=== PATIENT | male | born 1990 | race Caucasian/White ===

== ENCOUNTER 2018-08-08 15:27 | Emergency (ER) | payer MEDICAID ==
[~2018-08-08] VITALS: Ht 157.5 cm; Wt 71.1 kg
[2018-08-08 15:30] VITALS: BP 132/67; PULSE 83; RESP 18; Ht 157.5 cm; Wt 71.1 kg
[2018-08-08] MEDS ORDERED: IBUPROFEN 600 MG TAB PO ONE (16:30)
[2018-08-08] MEDS ORDERED: IBUP-1542 PO (16:49)
--- NOTE | 2018-08-08 17:48 | ERD ---
ER Documentation Chief Complaint Chief Complaint epigastric pain X 3 days after 6' fall from ladder HPI This patient is a 28-year-old male with no significant past medical history presenting to the emergency department complaining of midepigastric and bilateral lower rib pain after fall which occurred 3 days ago. The patient states he actually fell forward approximately 6 feet off of a ladder. He reports pain which is constant, 8/10 in severity, worse with lifting objects. He took no medication for relief of symptoms. He denies any head injury, loss of consciousness, shortness of breath, hemoptysis, nausea, vomiting, fevers, chills, or other symptoms at this time. ROS All systems reviewed and are negative except as per history of present illness. Medications Home Meds Active Scripts Ibuprofen* (Motrin*) 600 Mg Tab, 600 MG PO Q6, #30 TAB Prov:ALDA VINCENT PA-C 08/08/18 Allergies Allergies: Coded Allergies: No Known Allergy (Unverified , 08/08/18) PMhx/Soc Medical and Surgical Hx: pt denies Medical Hx, pt denies Surgical Hx History of Surgery: No Anesthesia Reaction: No Hx Neurological Disorder: No Hx Respiratory Disorders: No Hx Cardiac Disorders: No Hx Psychiatric Problems: No Hx Miscellaneous Medical Probl: No Hx Alcohol Use: No Hx Substance Use: No Hx Tobacco Use: No Smoking Status: Never smoker FmHx Family History: No diabetes Physical Exam Vitals Vital Signs Date Temp Pulse Resp B/P (MAP) Pulse Ox O2 O2 Flow FiO2 Time Delivery Rate 08/08/18 97.8 83 18 132/67 99 15:30 (88) Physical Exam Const: No acute distress Head: Atraumatic Eyes: Normal Conjunctiva ENT: Normal External Ears, Nose and Mouth. Neck: Full range of motion. No meningismus. Resp: Clear to auscultation bilaterally Cardio: Regular rate and rhythm, no murmurs Abd: Soft, mild tenderness to palpation in the midepigastrium, no rebound tenderness or guarding, no abdominal ecchymosis, no McBurney's point tenderness, non distended. Normal bowel sounds ribs: Ribs: Mild subjective tenderness palpation to the lower ribs bilaterally. No crepitus. No ecchymosis. Skin: No petechiae or rashes Back: No midline or flank tenderness Ext: No cyanosis, or edema Neur: Awake and alert Psych: Normal Mood and Affect Results 24 hrs Current Medications Medications Dose Sig/Irene Start Time Status Last (Trade) Ordered Route PRN Stop Time Admin Dose Reason Admin Ibuprofen 600 mg ONCE ONCE 08/08/18 DC 08/08/18 (Motrin) PO 16:30 08/08/18 16:12 16:31 [place] [id number] Radiology Main Line: [phone] DIAGNOSTIC IMAGING REPORT Patient: WILMAR TELLEZ : 1990 Age: 28 Sex: M MR #: [id number] DOS: 08/08/18 0000 Ordering MD: ALDA VINCENT PA-C Location: [facility] Room/Bed: PROCEDURE: CT OF CHEST ABDOMEN AND PELVIS CLINICAL INDICATION: Fall from ladder. TECHNIQUE: CT of the chest, abdomen and pelvis without IV contrast. Images include coronal and sagittal reformatted images obtained from axial source images. One or more of the following dose reduction techniques were used: Automated exposure control, adjustment of the mA and/or kV according to patient size or use of iterative reconstruction technique. DICOM images are available for review. DLP (mGy.cm): 646.4 CTDlvol (mGy) : 8.39 COMPARISON: None. FINDINGS: CHEST: The cardiac size is normal. Thoracic aorta is of normal size. There is no pericardial or pleural effusion. There is no pneumothorax. There is no bulky thoracic adenopathy. The lungs are clear without evidence of pulmonary laceration or contusion. There is no mediastinal hematoma. The bony structures are unremarkable. ABDOMEN AND PELVIS: The liver, gallbladder, kidneys, spleen, pancreas and adrenal gland are unremarkable allowing for lack of IV contrast. There is no hemoperitoneum, pneumoperitoneum or free fluid. There is no bowel obstruction, free air or free fluid. The appendix is normal. There is no abdominopelvic adenopathy. The urinary bladder and prostate are unremarkable. There are degenerative changes of the lower lumbar spine. IMPRESSION: 1. No evidence of thoracic trauma allowing for lack of IV contrast. 2. Limited evaluation of the solid organs without IV contrast. There are no seco ndary signs of abdominal trauma including hemoperitoneum. 3. No evidence of bony trauma in the chest, abdomen or pelvis. RPTAT: HMZ .Marbin Farr MD, Date Time Electronically viewed and signed by .Marbin Farr MD, on 08/08/2018 18:31 .Z/ CC: ALDA VINCENT PA-C [id number] Procedures/MDM 28-year-old male presenting to the emergency department complaining of bilateral lower rib pain and midepigastric pain after fall from a ladder which occurred 3 days ago. Patient was administered ibuprofen in the department with good response. Chest x-ray was negative. I did discuss this patient's case with attending ED physician, Dr. Ella Bell, who recommended CT chest and CT abdomen. Imaging studies were negative for any acute findings. The full reports from radiologist may be viewed above. Patient stable for discharge with Instructions to follow-up with his primary care physician within the next 1-2 days. Patient agreed with the diagnosis, plan, need for follow-up, return precautions. Departure Diagnosis: Primary Impression: Chest wall contusion Encounter type: initial encounter Laterality: unspecified laterality Qualified Codes: S20.219A - Contusion of unspecified front wall of thorax, initial encounter Condition: Fair Patient Instructions: Chest Wall Contusion [facility] Usted se rogel hecho un examen mdico de control que le indica que no est en helena condicin que requiera tratamiento urgente en el Departamento de Emergencia. Un estudio ms profundo y el tratamiento de alas condicin pueden esperar sin ningn riesgo hasta que usted sea atendida/o en el consultorio de alas mdico o helena clnica. Es responsabilidad suya arreglar helena lexy para el seguimiento del phan. MANEJO DE CONDICIONES NO URGENTES EN EL FUTURO 1) Si usted tiene un mdico de atencin primaria: Usted debera llamar a alas mdico de atencin primaria antes de venir al departamento de emergencia. Despus de las horas de consultorio, alas doctor o alas asociado/a est disponible por telfono. El mdico o enfermero de mariely en el servicio telefnico puede asesorarle por cassidy medio para atender el problema, o phan contrario se puede programar helena lexy. 2) Si usted no tiene un mdico de atencin primaria: Llame al mdico o clnica de referencia que aparece abajo tal las horas de consultorio para hacer helena lexy para que le vean. CLINICAS: [place] [id number] [phone] [facility] [phone] [facility] [facility] [phone] [facility] [place] [id number] [phone] [facility] [place] [id number] [phone] [facility]. [phone] Additional Instructions: Llame al doctor MAANA y cherri helena LEXY PARA DENTRO DE 1-2 ROOT.Dgale a la sec retaria que nosotros le instruimos hacer esta lexy.Avise o llame si alas condicin se empeora antes de la lexy. Regresa aqui si peor o no mejor. ALDA VINCENT PA-C Aug 08, 2018 17:48
== END 2018-08-08 18:37 | disposition home or self-care (01) ==
LOC: FTE 15:27
DX: S20.219A Contusion of unspecified front wall of thorax, initial encounter (principal); W11.XXXA Fall on and from ladder, initial encounter; Y92.9 Unspecified place or not applicable
CPT/HCPCS: 71045; 71250; 74176; Z7502; Z7610